=== PATIENT | male | born 1995 | race Caucasian/White ===

== ENCOUNTER 2023-09-14 23:09 | Inpatient (IN) | payer OTHER ==
[~2023-09-14] VITALS: Ht 180.3 cm; Wt 77.0 kg
[2023-09-14] MEDS ORDERED: HYDR-4527 PO ×2 (23:32)
[2023-09-14] MEDS ORDERED: VENL-53 PO (23:32)
[2023-09-14] MEDS ORDERED: PRAZ1 PO (23:32)
[2023-09-14] MEDS ORDERED: KETOROLAC TROMETHAMINE 30 MG/ML VIAL IM ONE (23:45)
[2023-09-15 00:51] LABS: BASOPHILS % (AUTO) 0.2 % (0.0-2.0); EOSINOPHILS % (AUTO) 1.5 % (1.0-6.0); HEMATOCRIT 37.4 % (41-53); HEMOGLOBIN 12.9 g/dL (13.5-17.5); LYMPHOCYTES # (AUTO) 1.8 K/uL (1.0-4.8); LYMPHOCYTES % (AUTO) 18.3 % (22.0-44.0); MEAN CORPUSCULAR HGB CONC 34.6 G/dL (31.0-37.0); MEAN CORPUSCULAR VOLUME 87 fL (80-100); MONOCYTES # (AUTO) 0.9 K/uL (0.1-1.0); MONOCYTES % (AUTO) 9.3 % (2.0-9.0); NEUTROPHILS # (AUTO) 6.9 K/uL (1.8-7.7); NEUTROPHILS % (AUTO) 70.7 % (40.0-70.0); PLATELET COUNT (AUTO) 238 K/uL (150-450); RED CELL DISTRIBUTION WIDTH 13.2 % (11.5-14.5); WHITE BLOOD COUNT (AUTO) 9.7 K/uL (4.5-11.0)
[2023-09-15 00:53] LABS: ANION GAP 11 mmol/L (8-16); CALCIUM, TOTAL 9.9 mg/dL (8.8-10.5); CARBON DIOXIDE 25 mmol/L (22-29); CHLORIDE 95 mmol/L (98-107); CREATININE 0.93 mg/dL (0.60-1.30); GLOMERULAR FILTR. RATE CALC > 60 mL/min (>60); GLUCOSE,RANDOM 104 mg/dL (70-110); POTASSIUM 3.4 mmol/L (3.5-5.1); SODIUM SERUM 131 mmol/L (136-145); UREA NITROGEN, BLOOD 8 mg/dL (7-18)
[2023-09-15 00:58] LABS: APPEARANCE,URINE CLEAR (CLEAR); BILIRUBIN,URINE NEGATIVE (NEGATIVE); COLOR,URINE COLORLESS (YELLOW); GLUCOSE, URINE (UA) NEGATIVE (NEGATIVE); KETONES,URINE NEGATIVE (NEGATIVE); LEUKOCYTE ESTERASE ,URINE NEGATIVE (NEGATIVE); NITRATE,URINE NEGATIVE (NEGATIVE); OCCULT BLOOD,URINE NEGATIVE (NEGATIVE); PROTEIN,URINE NEGATIVE (NEGATIVE); SPECIFIC GRAVITIY, URINE 1.005 (1.003-1.030); UROBILINOGEN,URINE <=1.0 mg/dL (<=1.0)
[2023-09-15 01:00] LABS: ALANINE AMINOTRANSFERASE 17 U/L (12-78); ALBUMIN 4.5 g/dL (3.4-5.0); ALKALINE PHOSPHATASE 72 U/L (46-116); ASPARTATE AMINOTRANSFERASE 11 U/L (15-37); BILIRUBIN,TOTAL 0.6 mg/dL (0.1-1.0); TOTAL PROTEIN, SERUM 7.2 g/dL (6.4-8.2)
[2023-09-15 01:17] LABS: ALCOHOL, URINE DRUG SCREEN NEGATIVE (NEGATIVE); AMPHET/METH SCREEN,URINE NEGATIVE (NEGATIVE); BARBITURATE SCREEN, URINE NEGATIVE (NEGATIVE); BENZODIAZEPINES SCREEN,URINE NEGATIVE (NEGATIVE); CANNABINOID SCREEN,URINE NEGATIVE (NEGATIVE); COCAINE SCREEN,URINE NEGATIVE (NEGATIVE); METHADONE SCREEN, URINE NEGATIVE (NEGATIVE); OPIATE SCREEN,URINE NEGATIVE (NEGATIVE); PHENCYCLIDINE SCREEN,URINE NEGATIVE (NEGATIVE)
[2023-09-15 04:12] LABS: COVID AG,FIA SOURCE NASAL SWAB
[2023-09-15 04:18] LABS: INFLUENZA TYPE A NEGATIVE FOR TYPE A (NEGATIVE); INFLUENZA TYPE B NEGATIVE FOR TYPE B (NEGATIVE)
[2023-09-15 04:28] LABS: SARS-COV2 (COVID) ANTIGEN,FIA Positive (Negative)
[2023-09-15 05:07] VITALS: BP 119/72; PULSE 81; RESP 16; TEMP 98.5
[2023-09-15] MEDS ORDERED: IBUPROFEN 400 MG TABLET PO PRN (08:30)
[2023-09-15] MEDS ORDERED: CloNIDine HCL 0.1 MG TABLET PO PRN (08:30)
[2023-09-15] MEDS ORDERED: POTASSIUM CHLORIDE 20 MEQ ER TABLET PO PRN (08:30)
[2023-09-15] MEDS ORDERED: LOPERAMIDE HCL 2 MG CAPSULE PO PRN (08:30)
[2023-09-15] MEDS ORDERED: DOCUSATE SODIUM 100 MG CAPSULE PO PRN (08:30)
[2023-09-15] MEDS ORDERED: POTASSIUM CHL 10 MEQ/WATER 50 ML IV PRN (08:30)
[2023-09-15] MEDS ORDERED: PETROLATUM,WHITE 28 GM JELLY TP PRN (08:30)
[2023-09-15] MEDS ORDERED: MAGNESIUM HYDROXIDE SUSPENSION 30 ML UDCUP PO PRN (08:30)
[2023-09-15] MEDS ORDERED: GuaiFENesin/D-METHORPHAN [SUGAR-FREE] 200-20MG/10 ML SYRUP UDCUP PO PRN (08:30)
[2023-09-15] MEDS ORDERED: ALBUTEROL SULFATE HFA 90 MCG/PUFF 8 GM INHALER IH PRN (08:30)
[2023-09-15] MEDS ORDERED: NICOTINE 14 MG/24 HOUR PATCH TD PRN (08:30)
[2023-09-15] MEDS ORDERED: ACETAMINOPHEN 325 MG TABLET PO PRN (08:30)
[2023-09-15] MEDS ORDERED: ONDANSETRON HCL 4 MG TABLET PO PRN (08:30)
[2023-09-15] MEDS ORDERED: MAG HYDROX/ALUMINUM HYD/SIMETH ES 30 ML SUSPENSION UDCUP PO PRN (08:30)
[2023-09-15 09:08] VITALS: BP 99/48; PULSE 74; RESP 19; TEMP 98.5
[2023-09-15] MEDS: VENLAFAXINE HCL 37.5 MG TABLET PO SCH (12:42)
[2023-09-15] MEDS: HydrOXYzine HCL 25 MG TABLET PO SCH (12:45)
[2023-09-15 15:31] VITALS: BP 117/74; PULSE 74; RESP 19; TEMP 98.5
[2023-09-15 20:02] VITALS: BP 104/60; PULSE 69; RESP 18; TEMP 98.9
[2023-09-15] MEDS: HydrOXYzine HCL 50 MG TABLET PO SCH (20:16)
[2023-09-15] MEDS: PRAZOSIN HCL 1 MG CAPSULE PO SCH (20:16)
[2023-09-16 05:23] VITALS: BP 108/63; PULSE 68; RESP 19; TEMP 99.7
[2023-09-16 08:10] VITALS: BP 106/60; PULSE 57; RESP 20; TEMP 98.2
[2023-09-16] MEDS: VENLAFAXINE HCL 37.5 MG TABLET PO SCH (08:11)
[2023-09-16] MEDS: HydrOXYzine HCL 25 MG TABLET PO SCH (08:11)
[2023-09-16 12:00] VITALS: BP 103/56; PULSE 57; RESP 20; TEMP 98.5
[2023-09-16 16:00] VITALS: BP 105/58; PULSE 58; RESP 20; TEMP 98.3
[2023-09-16 19:54] VITALS: BP 99/56; PULSE 54; RESP 20; TEMP 98.5
[2023-09-16] MEDS: HydrOXYzine HCL 50 MG TABLET PO SCH (20:40)
[2023-09-16] MEDS: PRAZOSIN HCL 1 MG CAPSULE PO SCH (20:50)
[2023-09-17 04:30] VITALS: BP 108/66; PULSE 66; RESP 18; TEMP 98
[2023-09-17] MEDS: HydrOXYzine HCL 25 MG TABLET PO SCH (08:23)
[2023-09-17 08:26] VITALS: BP 110/68; PULSE 68; RESP 18; TEMP 98.2
[2023-09-17] MEDS: VENLAFAXINE HCL 37.5 MG TABLET PO SCH (08:29)
[2023-09-17 15:05] VITALS: BP 106/60; PULSE 70; RESP 20; TEMP 98.4
[2023-09-17 19:48] VITALS: BP 106/57; PULSE 77; RESP 20; TEMP 98
[2023-09-17] MEDS: HydrOXYzine HCL 50 MG TABLET PO SCH (21:10)
[2023-09-17] MEDS: PRAZOSIN HCL 1 MG CAPSULE PO SCH (21:11)
[2023-09-18 06:02] VITALS: BP 102/63; RESP 20; TEMP 97.9
[2023-09-18 07:49] VITALS: BP 125/70; PULSE 101; RESP 18; TEMP 98.1
[2023-09-18] MEDS: VENLAFAXINE HCL 37.5 MG TABLET PO SCH (09:09)
[2023-09-18] MEDS: HydrOXYzine HCL 25 MG TABLET PO SCH (09:09)
[2023-09-18 15:40] VITALS: BP 100/55; PULSE 68; RESP 18; TEMP 98.7
[2023-09-18 19:28] VITALS: BP 112/56; PULSE 79; RESP 18; TEMP 98.6
== END 2023-09-18 19:40 | DRG 640 ==
LOC: EMS 23:10 → 6S 09-15 04:00 → 6N 09-15 05:28
PROVIDERS: ADMIT Internal Medicine; ATTEND Internal Medicine
DX: E87.6 Hypokalemia (principal); U07.1 COVID-19; F33.2 Major depressive disorder, recurrent severe without psychotic features; R45.851 Suicidal ideations; Z20.822 Contact with and (suspected) exposure to COVID-19; D64.9 Anemia, unspecified; F43.12 Post-traumatic stress disorder, chronic; Z79.899 Other long term (current) drug therapy
CPT/HCPCS: 80053; 80307; 81003; 84132; 84443; 85025; 87804; 99285; G0480; J1885; Q0162